=== PATIENT | female | born 1965 | race Caucasian/White ===

== ENCOUNTER 2018-01-08 18:21 | Inpatient (IN) | payer OTHER ==
[~2018-01-08] VITALS: Ht 165.1 cm; Wt 62.2 kg
[2018-01-08] MEDS ORDERED: SODIUM CHLORIDE 0.9% 1000ML 1,000 ML IV SCH (20:13)
[2018-01-08] MEDS ORDERED: POLYETHYLENE (MIRALAX) 17 GM PACK PO PRN (20:15)
[2018-01-08] MEDS ORDERED: ALUMINUM/MAGNESIUM/SIMETH (MAALOX MAX) 30 ML UDC PO PRN (20:15)
[2018-01-08] MEDS ORDERED: ONDANSETRON INJ 2 MG/ML 2 ML VIAL IV PRN (20:15)
[2018-01-08] MEDS ORDERED: ACETAMINOPHEN 325 MG TAB PO PRN (20:15)
[2018-01-08] MEDS ORDERED: MAGNESIUM HYDROXIDE SUSP 30 ML UDC PO PRN (20:15)
[2018-01-08] MEDS ORDERED: PHARMACIST DISCHARGE MED REC CONSULT PRN (20:15)
[2018-01-08] MEDS ORDERED: NITROGLYCERIN 0.4 MG SL PER TAB CHARGE SL PRN (20:15)
[2018-01-08 20:17] VITALS: O2SAT 100
[2018-01-08] MEDS ORDERED: NRN300 PO (20:23)
[2018-01-08] MEDS ORDERED: SUMA50TA15 PO (20:23)
[2018-01-08] MEDS ORDERED: OMEP20TA PO (20:23)
[2018-01-08] MEDS ORDERED: FLUT0.15 NAE (20:23)
[2018-01-08] MEDS ORDERED: DOCU-94 PO (20:23)
[2018-01-08] MEDS ORDERED: MGNO400 PO (20:23)
--- NOTE | 2018-01-08 20:24 | History and Physical ---
History & Physical Date & Time of Service: January 08, 2018 at 20:24 Chief Complaint: Stroke-Like Symptoms Primary Care Physician: Jenny Faye PA-C History of Present Illness Source: patient This is a 52-year-old female with medical history of migraine headache, vertigo Presented to [facility] ER with complaint of right-sided numbness, difficulty to speak, right eye blurred vision Patient mentioned she woke up this morning with slight frontal headache. Around 10:30 AM as she was working on her computer, noted having difficulty typing, could not identify the alphabets on Bhat board. Blurred vision on right eye Has been noted patient was having word finding difficulties, dysarthria No facial droop noted Had tingling numbness of fingers on both hands No weakness or paresthesia of any extremities No complaint of shortness of breath, chest heaviness, palpitation or dizzy spell Patient was brought to [facility] ER CT head without contrast: Showed no acute change Patient follows with Dr. Joe neurology at [facility] does not have any neurologic coverage Transferred to [facility] for further neurological evaluation Lab work at [facility] [address]: Today 01/08/2018 at 16: 14 p.m.-ESSENTIALLY NORMAL WBC 6.87/hemoglobin 13.7/hematocrit 39.4/platelet count 282 Troponin negative Sodium 140 Potassium 4.0 Chloride 99 BUN 18/creatinine 0.8 CO2- 29/ anion gap 12 Past Medical/Surgical History Medical Problems: (1) Stroke-like symptom Allergies Coded Allergies: No Known Allergies (Unverified , 01/08/18) Home Medications Scheduled Docusate Sodium (Colace), 1 CAP PO HS Fluticasone Propionate (Nasal) (Flonase Allergy Relief), 2 SPRAYS MACI DAILY Gabapentin (Gabapentin), 300 MG PO TID Magnesium Oxide (Magnesium-Oxide), 1 TAB PO DAILY Omeprazole (Omeprazole), 1 TAB PO DAILY Sumatriptan Succinate (Imitrex), 50 MG PO UD Review of Systems Constitutional: + weakness Eyes: + worsening of vision (On right eye) Respiratory: No cough, No sputum, No wheezing, No shortness of breath, No dyspnea on exertion, No dyspnea at rest, No hemoptysis, No problem reported Cardiovascular: No chest pain, No orthopnea, No PND, No edema, No claudication , No palpitations, No problem reported Abdomen: No pain, No nausea, No vomiting, No diarrhea, No constipation, No GI bleeding, No problem reported Neurologic: + memory loss, + numbness/tingling (Both hands), + problem reported (Dysarthria/word finding difficulties) Psychiatric: + anxiety Physical Exam General Appearance: no apparent distress Head: normocephalic, atraumatic Eyes: normal inspection, PERRL, EOMI, sclerae normal, + pertinent finding ( Vision normal in both eyes with confrontational testing) ENT: normal ENT inspection Neck: supple, no adenopathy, thyroid normal, no JVD Respiratory/Chest: chest non-tender, lungs clear, normal breath sounds, no respiratory distress Cardiovascular: regular rate, rhythm, no edema, no JVD Abdomen/GI: normal bowel sounds, non tender, soft Extremities/Musculoskelatal: no calf tenderness, normal capillary refill, no pedal edema 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 There is no midline shift Visualized portion of paranasal sinuses and mastoid air cells are relatively well pneumatized No evidence of any acute change Impression Assessment and Plan STROKE LIKE SYMPTOM : Transient episode of right eye blurriness dysarthria/word finding difficulties Without any focal neurological deficit Symptoms resolved after few hours Initial imaging CT head without contrast done in [place] ER negative for any acute change Patient's presentation is very atypical as per stroke/TIA Order for MRI brain Monitor in telemetry to rule out arrhythmia Carotid Doppler and resting echo ordered Neurology consult requested patient is known to Dr. Joe Aspirin 81 mg daily added Fasting blood sugar lipid profile added in a.m. lab to assess for risk factor HX OF MIGRANE Patient's presentation could be a complex migraine attack Continued with outpatient medication of triptan Neurology evaluation with Dr. Joe CODE STATUS: Full code DVT prophylaxis: Low risk SCD and teds Ambulate DISPOSITION: Expected to be discharged home Neurology follow-up with Dr. Joe Patient follows at [facility] VTE Prophylaxis Risk Level: Moderate
[2018-01-08] MEDS ORDERED: SUMATRIPTAN SUCCINATE 50 MG TAB PO PRN (20:30)
[2018-01-08] MEDS ORDERED: DOCUSATE SODIUM 100 MG CAP PO SCH (21:00)
[2018-01-08 21:13] LABS: INR 1.1 (0.9-1.1); PTT PATIENT 25.3 SECONDS (21.0-31.0)
[2018-01-08] MEDS: GABAPENTIN 300 MG CAP PO SCH (21:29)
[2018-01-08 22:21] VITALS: BP 127/81; PULSE 60; TEMP 36.6; O2SAT 100; Ht 165.1 cm; Wt 62.2 kg
[2018-01-09 00:06] VITALS: BP 121/79; PULSE 65; TEMP 36.4; O2SAT 96
[2018-01-09] MEDS ORDERED: GADAVIST IV PRN (00:15)
[2018-01-09 03:47] VITALS: BP 108/74; PULSE 69; TEMP 36.6; O2SAT 99
[2018-01-09] MEDS: HEPARIN SOD 5000 UNIT/0.5 ML CARP SQ SCH ×2 (05:28→14:29)
[2018-01-09 06:01] LABS: HEMOGLOBIN A1C 5.4 % (4.5-5.6)
--- NOTE | 2018-01-09 07:10 | DIAGNOSTIC IMAGING REPORT ---
CAROTID DOPPLER NECK ART CLINICAL HISTORY: 52 years-old Female presenting with Stroke. TECHNIQUE: Real-time grayscale and color and spectral Doppler ultrasound imaging of the bilateral carotid arteries was performed. NASCET criteria was used in evaluating this study. COMPARISON: None. FINDINGS: Right: Common carotid: Patent. Peak systolic velocity 71 cm/s. Internal carotid artery: Patent. Peak systolic velocity 127 cm/s. Systolic ratio: 1.8. External carotid artery: Patent. Peak systolic velocity 75 cm/s. Left: Common carotid: Patent. Peak systolic velocity 89 cm/s. Internal carotid artery: Patent. Peak systolic velocity 129 cm/s. Systolic ratio: 1.4. External carotid artery: Patent. Peak systolic velocity 68 cm/s. Bilateral antegrade flow within the vertebral arteries. Reference ranges: Stenosis measurements are compared to reference velocity parameters. Primary parameters: ICA peak systolic velocity (PSV) < 125 cm/s normal or indicating < 50% stenosis; ICA PSV 125-230 cm/s equivalent to 50-69% stenosis; ICA PSV > 230 cm/s equivalent to greater than or equal to 70% stenosis. Additional parameters: ICA PSV to common carotid artery PSV ratio < 2 normal or < 50% stenosis; 2-4 equates to 50-69% stenosis, > 4 equates to greater than or equal to 70% stenosis. Normal ICA end-diastolic velocity less than 40. Blood pressure: Not performed. IMPRESSION: 1. Elevated velocity in the bilateral internal carotid arteries suggests up to 50-69% stenosis. Electronically signed by: Giovanny Leonard M.D. 01/09/2018 7:09 AM Dictated Date/Time: 01/09/2018 7:06 AM
--- NOTE | 2018-01-09 07:18 | DIAGNOSTIC IMAGING REPORT ---
BRAIN COMBO CLINICAL HISTORY: 52 years-old Female presenting with Stroke, disorientation, confusion. TECHNIQUE: Multisequence, multiplanar MR imaging of the brain was performed before and after the administration of intravenous contrast. IV contrast: 6 mL of Gadavist. COMPARISON: None. FINDINGS: Ventricles and sulci normal in size. Brain parenchyma normal in appearance with preserved nolan-white differentiation. No mass effect or midline shift. No restricted diffusion to suggest acute ischemia. No hemorrhage. No extra-axial fluid collection. T2 skull base flow voids preserved. No abnormal parenchymal enhancement. Bone marrow signal intensity within the calvarium within normal limits. IMPRESSION: 1. No acute intracranial pathology. No abnormal enhancement. Electronically signed by: Giovanny Leonard M.D. 01/09/2018 7:17 AM Dictated Date/Time: 01/09/2018 6:56 AM
[2018-01-09 07:29] LABS: HEMATOCRIT 39.2 % (37-47); HEMOGLOBIN 13.3 g/dL (12.0-16.0); MEAN CELL VOLUME 86.5 fL (80-100); MEAN CORPUSCULAR HEMOGLOBIN 29.4 pg (25-34); MEAN CORPUSCULAR HGB CONC 33.9 g/dl (32-36); MEAN PLATELET VOLUME 10.1 fL (7.4-10.4); PLATELET COUNT 258 K/uL (130-400); RED CELL DISTRIBUTION WIDTH CV 13.3 % (11.5-14.5); RED CELL DISTRIBUTION WIDTH SD 42.2 fL (36.4-46.3); WHITE BLOOD COUNT 4.56 K/uL (4.8-10.8)
[2018-01-09 07:44] VITALS: BP 108/74; PULSE 68; TEMP 36.8; O2SAT 97
[2018-01-09 08:00] LABS: CALCIUM 8.8 mg/dl (8.5-10.1); CREATININE 0.65 mg/dl (0.60-1.20); POTASSIUM 3.8 mmol/L (3.5-5.1)
[2018-01-09] MEDS: GABAPENTIN 300 MG CAP PO SCH ×2 (08:02→14:27)
[2018-01-09] MEDS ORDERED: PANTOprazole SOD 40 MG TAB PO SCH (09:00)
[2018-01-09] MEDS ORDERED: ASPIRIN 81 MG ECTAB PO SCH (09:00)
[2018-01-09] MEDS ORDERED: FLUTICASONE PROPIONATE NA SPR 16 GM BTL NAE SCH (09:00)
[2018-01-09] MEDS ORDERED: MAGNESIUM OXIDE 400 MG TAB PO SCH (09:00)
--- NOTE | 2018-01-09 10:41 | ECHOCARDIOGRAM REPORT ---
*NOTICE TO RECEIVING DEMOCRAT AGENCY This information is strictly Confidential and protected under [place] law. [place] law prohibits you from making any further disclosure of this information unless further disclosure is expressly permitted by the written consent of the person to whom it pertains or is authorized by law. A general authorization for the release of medical or other information is not sufficient for this purpose. Hospital accepts no responsibility if the information is made available to any other person, INCLUDING THE PATIENT. Interpretation Summary * Name: DE PALACIOS Study Date: 01/09/2018 06:57 AM BP: 108/74 mmHg * Patient Location: .2T\S\E219\S\1 HR: 69 * : 1965 (M/d/yyyy) Gender: Female Height: 65 in * Age: 52 yrs Weight: 137 lb * Ordering Physician: Emperatriz Gasca * Referring Physician: No Doctor, Assigned * Performed By: Cassie Reyes RDCS * * Reason For Study: Cerebral ischemia/embolus * BSA: 1.7 m2 * -- Conclusions -- * Normal LV chamber size and wall thickness. * Normal LV systolic function, EF 60-65%. * No segmental left ventricular wall motion abnormalities are noted. * Normal diastolic function. * No significnat valvular pathology. * Injection of contrast documented no interatrial shunt. Procedure Details * A complete two-dimensional transthoracic echocardiogram was performed (2D, M-mode, Doppler and color flow Doppler). * A saline contrast injection was performed to assess for cardiac shunting. * The injection was performed through an intravenous line in the left arm. * The attending nurse who injected the saline contrast was Jude Cobos RN. * A total of 10 cc of agitated saline was given. Left Ventricle * The left ventricle is normal in size. * There is normal left ventricular wall thickness. * Ejection Fraction = 60-65%. * Left ventricular systolic function is normal. * No segmental left ventricular wall motion abnormalities are noted. * The left ventricular wall motion is normal. Right Ventricle * The right ventricular cavity size is normal (basal dimension <4.2 cm in right ventricular apical 4-chamber view). * The right ventricular systolic function is normal as assessed by tricuspid annular plane systolic excursion (TAPSE) (normal >1.5 cm). Atria * The left atrial size is normal. * Right atrial size is normal. * Injection of contrast documented no interatrial shunt. Mitral Valve * The mitral valve is normal in structure and function. Tricuspid Valve * The tricuspid valve is normal in structure and function. Aortic Valve * The aortic valve is normal in structure and function. Pulmonic Valve * The pulmonary valve is not well seen, but the Doppler examination is normal without significant regurgitation or stenosis. Great Vessels * The aortic root and proximal ascending aorta are normal sized. Pericardium/Pleural * There is no pericardial effusion. Left Ventricular Diastolic Function * Pulse wave TDI of the anterior and posterior mitral annulas demonstrates normal LV relaxation MMode 2D Measurements and Calculations IVSd 0.98 cm LVIDd 3.9 cm LVIDs 2.1 cm LVPWd 1.2 cm IVS/LVPW 0.85 FS 45.3 % EDV(Teich) 67.1 ml ESV(Teich) 15.3 ml EF(Teich) 77.2 % EDV(cubed) 60.7 ml ESV(cubed) 9.9 ml EF(cubed) 83.6 % LV mass(C)d 136.6 grams LV mass(C)dI 81.1 grams/m\S\2 SV(Teich) 51.8 ml SI(Teich) 30.8 ml/m\S\2 SV(cubed) 50.8 ml SI(cubed) 30.1 ml/m\S\2 Ao root diam 2.9 cm Ao root area 6.5 cm\S\2 ACS 2.0 cm LA dimension 3.4 cm asc Aorta Diam 2.8 cm LA/Ao 1.2 LVOT diam 2.0 cm LVOT area 3.2 cm\S\2 LVAd ap4 20.1 cm\S\2 LVLd ap4 6.3 cm EDV(MOD-sp4) 52.4 ml EDV(sp4-el) 54.4 ml LVAs ap4 9.6 cm\S\2 LVLs ap4 5.3 cm ESV(MOD-sp4) 15.1 ml ESV(sp4-el) 14.8 ml EF(MOD-sp4) 71.1 % EF(sp4-el) 72.7 % LVAd ap2 20.3 cm\S\2 LVLd ap2 6.9 cm EDV(MOD-sp2) 49.5 ml EDV(sp2-el) 50.4 ml LVAs ap2 10.5 cm\S\2 LVLs ap2 5.7 cm ESV(MOD-sp2) 16.9 ml ESV(sp2-el) 16.4 ml EF(MOD-sp2) 65.8 % EF(sp2-el) 67.5 % LVLd %diff 8.6 % EDV(MOD-bp) 53.3 ml LVLs %diff 7.5 % ESV(MOD-bp) 16.6 ml EF(MOD-bp) 68.8 % SV(MOD-sp4) 37.3 ml SI(MOD-sp4) 22.1 ml/m\S\2 SV(MOD-sp2) 32.6 ml SI(MOD-sp2) 19.3 ml/m\S\2 SV(MOD-bp) 36.6 ml SI(MOD-bp) 21.8 ml/m\S\2 SV(sp4-el) 39.5 ml SI(sp4-el) 23.5 ml/m\S\2 SV(sp2-el) 34.1 ml SI(sp2-el) 20.2 ml/m\S\2 Doppler Measurements and Calculations MV E max bailey 80.0 cm/sec MV A max bailey 66.5 cm/sec MV E/A 1.2 MV dec time 0.19 sec Ao V2 max 112.9 cm/sec Ao max PG 5.1 mmHg Ao max PG (full) 1.3 mmHg [place](V,A) 2.7 cm\S\2 [place](V,D) 2.7 cm\S\2 LV V1 max PG 3.8 mmHg LV V1 max 97.0 cm/sec PA V2 max 78.7 cm/sec PA max PG 2.5 mmHg PA acc slope 421.9 cm/sec\S\2 PA acc time 0.11 sec TR max bailey 166.8 cm/sec PA pr(Accel) 28.3 mmHg
[2018-01-09 11:37] VITALS: BP_SYST 108; BP_SYST 115; BP_DIAS 72; BP_DIAS 74; PULSE 69; TEMP 36.5; O2SAT 97
--- NOTE | 2018-01-09 14:20 | Neurology Consultation ---
Neurology Consultation Date of Consultation: January 09, 2018. Attending Physician: Raoul Nicole M.D. Primary Care Physician: Jenny Faye PA-C Reason for Consultation: stroke like symptoms History of Present Illness Source: patient Jasmina is a 52 year old female with medical history of migraine headache, vertigo presented to [facility] ER with complaint of right-sided numbness, difficulty to speak, right eye blurred vision. She woke up this morning with slight frontal headache and around 10:30 am she was working on her computer having difficulty with some tasks and was unable to identify the keys on the keyboard. she states her right eye was blurred from mid line and laterally, there was no facial droop or weakness. She did have numbness and tingling in her right finger that she has most mornings when she wakes but it lasted longer than normal. On her head CT there were no abnormal findings. She was then brought to [facility] for further evaluation and neurology review. denies CP , SOB, abdominal pain, one sided numbness tingling weakness, slurring of speech , swallowing issues, N, V. symptoms lasted about 4 hours. Allergies Coded Allergies: No Known Allergies (Unverified , 01/08/18) Current Inpatient Medications Current Inpatient Medications Medications (Trade) Dose Ordered Sig/Chiara Route Start Time Stop Time Status Last Admin Dose Admin Aspirin (Ecotrin Tab) 81 mg QAM PO 01/09/18 09:00 02/08/18 08:59 01/09/18 08:01 81 MG Miscellaneous Information (Pharmacist Discharge Med Rec Consult) 1 ea UD PRN N/A 01/08/18 20:15 02/07/18 20:14 Heparin Sodium (Porcine) (Heparin Sq 5000 Unit/0.5ml) 5,000 unit Q8 SQ 01/09/18 06:00 02/08/18 05:59 01/09/18 05:28 5,000 UNIT Acetaminophen (Tylenol Tab) 650 mg Q4H PRN PO 01/08/18 20:15 02/07/18 20:14 Al Hydrox/Mg Hydrox/Simethicone (Maalox Max Susp) 15 ml Q4H PRN PO 01/08/18 20:15 02/07/18 20:14 Magnesium Hydroxide (Milk Of Magnesia Susp) 30 ml Q12H PRN PO 01/08/18 20:15 02/07/18 20:14 Ondansetron HCl (Zofran Inj) 4 mg Q6H PRN IV 01/08/18 20:15 02/07/18 20:14 Nitroglycerin (Nitrostat Tab) 0.4 mg UD PRN SL 01/08/18 20:15 02/07/18 20:14 Polyethylene (Miralax Powder Packet) 17 gm DAILY PRN PO 01/08/18 20:15 02/07/18 20:14 Docusate Sodium (coLACE CAP) 100 mg HS PO 01/08/18 21:00 02/07/18 20:59 01/08/18 21:29 100 MG Fluticasone Propionate (Flonase Nasal Lambert) 2 sprays DAILY MACI 01/09/18 09:00 02/08/18 08:59 Gabapentin (Neurontin Cap) 300 mg TID PO 01/08/18 21:00 02/07/18 20:59 01/09/18 08:02 300 MG Magnesium Oxide (Mag-Ox Tab) 400 mg DAILY PO 01/09/18 09:00 02/08/18 08:59 01/09/18 08:01 400 MG Sumatriptan Succinate (Imitrex Tab) 50 mg UD PRN PO 01/08/18 20:30 02/07/18 20:29 Pantoprazole Sodium (Protonix Tab) 40 mg QAM PO 01/09/18 09:00 02/08/18 08:59 01/09/18 08:01 40 MG Gadobutrol (Gadavist) 6 mmol UD PRN IV 01/09/18 00:15 01/13/18 00:14 Physical Exam Vital Signs (Past 24 Hrs): Date Time Temp Pulse Resp B/P (MAP) Pulse Ox O2 Delivery O2 Flow Rate FiO2 01/09/18 12:00 Room Air 01/09/18 11:37 36.5 69 18 115/72 (86) 97 01/09/18 08:00 Room Air 01/09/18 07:44 36.8 68 18 108/74 (85) 97 01/09/18 04:00 Room Air 01/09/18 03:47 36.6 69 18 108/74 (85) 99 01/09/18 00:06 36.4 65 18 121/79 (93) 96 01/08/18 23:59 Room Air 01/08/18 22:21 36.6 60 18 127/81 100 Room Air 01/08/18 20:17 100 Room Air Physical Exam: Constitutional: appearance nourished, healthy and normal Ears, Nose, Mouth and Throat: mucous membranes moist, no injection and skin normal, eyes normal Cardiovascular: normal S-1 and S-2 and regular rate and rhythm Respiratory: clear to auscultation (CTA) and no rales, rhonchi or wheeze Musculoskeletal: no peripheral edema and good distal pulses Skin: no stigmata of neurocutaneous disease noted and normal and intact Eyes: extraocular muscles intact (EOMI) and pupils equal, round and reactive to light (PERRL), contacts in place NEUROLOGIC EXAMINATION: Mental status: Alert and interactive Oriented to full date and location Oriented to person Speech fluent with no evidence of aphasia Cranial Nerves smile eye brow raise symmetric, tongue midline Reflexes: Deep tendon reflexes were symmetrical and graded 2/5. Plantar responses were flexor. Sensory: light touch vibration Coordination: Romberg absent Gait/Stance: Posture normal. Gait normal: with steady with steps, base, turning, heel and toe walking and tandem gait. Motor: Negative for pronator drift of out stretched arms with eyes closed. 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, hip flex ext patellar/planter flex ext 5/5 Laboratory Results Past 24 Hours: 01/09/18 06:53 01/09/18 06:53 Test 01/08/18 20:25 01/08/18 20:43 01/09/18 06:53 Estimated Average Glucose 108 mg/dl Hemoglobin A1c 5.4 % (4.5-5.6) Prothrombin Time 12.0 SECONDS (9.0-12.0) Prothromb Time International Ratio 1.1 (0.9-1.1) Activated Partial Thromboplast Time 25.3 SECONDS (21.0-31.0) Partial Thromboplastin Ratio 1.0 Red Blood Count 4.53 M/uL (4.2-5.4) Mean Corpuscular Volume 86.5 fL (80-100) Mean Corpuscular Hemoglobin 29.4 pg (25-34) Mean Corpuscular Hemoglobin Concent 33.9 g/dl (32-36) RDW Standard Deviation 42.2 fL (36.4-46.3) RDW Coefficient of Variation 13.3 % (11.5-14.5) Mean Platelet Volume 10.1 fL (7.4-10.4) Anion Gap 5.0 mmol/L (3-11) Est Creatinine Clear Calc Drug Dose 90.1 ml/min Estimated GFR () 117.5 Estimated GFR (Non- 101.4 BUN/Creatinine Ratio 17.1 (10-20) Calcium Level 8.8 mg/dl (8.5-10.1) Triglycerides Level 84 mg/dl (0-150) Cholesterol Level 143 mg/dl (0-200) HDL Cholesterol 63 mg/dl LDL Cholesterol, Calculated 63 mg/dl VLDL Cholesterol, Calculated 17 mg/dl Cholesterol/HDL Ratio 2.3 Imaging carotid doppler- . Elevated velocity in the bilateral internal carotid arteries suggests up to 50-69% stenosis. MRI brain with and without contrast- No acute intracranial pathology. No abnormal enhancement TTE- Normal LV chamber size and wall thickness. * Normal LV systolic function, EF 60-65%. * No segmental left ventricular wall motion abnormalities are noted. * Normal diastolic function. * No significnat valvular pathology. * Injection of contrast documented no interatrial shunt. Impression 52 year old female s/p word finding issues, blurred vision right lateral field, confusion Plan 1. MRI brain- no acute findings 2. TTE- no ASD 3. aspirin started 81 mg was not on aspirin previously 4. carotid doppler 50-69% stenosis will need to be repeated in 6 months to 1 year 5. optimize HTN, DL no issues at this time 6. PT/OT speech no current issues 7. history of migraine possibly complex migraine with aura vs TIA 8. no triptan due to possible TIA- should excedrin migraine 9. continue mg+ 400 mg daily and add riboflavin 400 mg daily return in 2-[address] Joe or Carolynn Shaffer PAC schedule I have seen and discussed above patient with Dr Raoul Joe, neurology Patient seen and interviewed, imaging reviewed and case discussed with Carolynn Lilly suspect this was a migrainous aura waxing an waning in type and following a headache of low intensity rather thanpreceding it but at this age with family history we have to term it a tia or rind with no residual deficits on exam or imaging Agree with asa only and avoid triptans in future with use of otc meds ie excedrin migraine, mag oxide contines neurontin and follow up with us in three to four weeks duplex is actually at the very lowest end of the range for calling it a 50-69% and suspect there is just a bit of plaque not inconsistent with age OK to discharge today Raoul Joe MD
[2018-01-09 15:36] VITALS: BP 122/85; PULSE 57; TEMP 36.6; O2SAT 98
--- NOTE | 2018-01-09 15:38 | Progress Note ---
Medicine Progress Note Date & Time of Visit: January 09, 2018 at 15:37 . Subjective Doing well. No headache. No focal neurologic symptoms. No CP, palpitations, SOB. No nausea or vomiting. . Objective Last 8 Hrs Date Time Temp Pulse Resp B/P (MAP) Pulse Ox O2 Delivery O2 Flow Rate FiO2 01/09/18 15:36 36.6 57 20 122/85 (97) 98 Room Air 01/09/18 12:00 Room Air 01/09/18 11:37 36.5 69 18 115/72 (86) 97 01/09/18 08:00 Room Air 01/09/18 07:44 36.8 68 18 108/74 (85) 97 Physical Exam: General- no distress Lungs- clear to auscultation; no respiratory distress Cardiovascular- RRR; no murmur; no gallop; no JVD; no pretibial edema Abdomen- + bowel sounds, soft, nontender Extremities- no cyanosis; no calf tenderness Neuro- alert, oriented; PERRL, EOMI; no facial palsy; no dysarthria; tongue midline; motor strength upper and lower extremities intact; patellar DTR's 2/2; plantar reflexes downgoing; finger to nose intact; heel t valencia intact Skin- warm & dry . Laboratory Results: Last 24 Hours Test 01/08/18 20:25 01/08/18 20:43 01/09/18 06:53 Estimated Average Glucose 108 mg/dl Hemoglobin A1c 5.4 % Prothrombin Time 12.0 SECONDS Prothromb Time International Ratio 1.1 Activated Partial Thromboplast Time 25.3 SECONDS Partial Thromboplastin Ratio 1.0 White Blood Count 4.56 K/uL Red Blood Count 4.53 M/uL Hemoglobin 13.3 g/dL Hematocrit 39.2 % Mean Corpuscular Volume 86.5 fL Mean Corpuscular Hemoglobin 29.4 pg Mean Corpuscular Hemoglobin Concent 33.9 g/dl RDW Standard Deviation 42.2 fL RDW Coefficient of Variation 13.3 % Platelet Count 258 K/uL Mean Platelet Volume 10.1 fL Sodium Level 143 mmol/L Potassium Level 3.8 mmol/L Chloride Level 111 mmol/L Carbon Dioxide Level 27 mmol/L Anion Gap 5.0 mmol/L Blood Urea Nitrogen 11 mg/dl Creatinine 0.65 mg/dl Est Creatinine Clear Calc Drug Dose 90.1 ml/min Estimated GFR () 117.5 Estimated GFR (Non- 101.4 BUN/Creatinine Ratio 17.1 Random Glucose 81 mg/dl Calcium Level 8.8 mg/dl Triglycerides Level 84 mg/dl Cholesterol Level 143 mg/dl HDL Cholesterol 63 mg/dl LDL Cholesterol, Calculated 63 mg/dl VLDL Cholesterol, Calculated 17 mg/dl Cholesterol/HDL Ratio 2.3 Assessment & Plan NEURO SYMPTOMS Presented to ED at [facility] with blurred vision in right eye , difficulty speaking, right-sided paresthesiae. Transferred to [facility] for further evaluation. MRI brain negative. Carotid duplex demonstrated bilateral carotid artery disease with estimated stenoses of 50-69%. Echo was unremarkable. 12-lead EKG and cardiac monitoring demonstrated NSR. LDL-c = 63. Symptoms resolved. Neurology consulted. Neuro symptoms felt to be due to complex migraine vs possible TIA. Management of possible TIA with aspirin and atorvastatin. Sumatriptan discontinued. Gabapentin, magnesium, riboflavin, Excedrin Migraine PRN. CAROTID ARTERY DISEASE Carotid duplex demonstrated bilateral carotid artery disease with estimated stenoses of 50-69%. Manage with with aspirin and atorvastatin. Recheck carotid duplex in 6-12 months. VTE PROPHYLAXIS SQ heparin. DISPOSITION Discharge to home. Primary Care follow-up with Jenny Faye PA-C, [facility]. Neuro follow-up with Carolynn Shaffer PA-C. . Current Inpatient Medications: Current Inpatient Medications Medications (Trade) Dose Ordered Sig/Chiara Route Start Time Stop Time Status Last Admin Dose Admin Aspirin (Ecotrin Tab) 81 mg QAM PO 01/09/18 09:00 02/08/18 08:59 01/09/18 08:01 81 MG Miscellaneous Information (Pharmacist Discharge Med Rec Consult) 1 ea UD PRN N/A 01/08/18 20:15 02/07/18 20:14 Heparin Sodium (Porcine) (Heparin Sq 5000 Unit/0.5ml) 5,000 unit Q8 SQ 01/09/18 06:00 02/08/18 05:59 01/09/18 14:29 5,000 UNIT Acetaminophen (Tylenol Tab) 650 mg Q4H PRN PO 01/08/18 20:15 02/07/18 20:14 Al Hydrox/Mg Hydrox/Simethicone (Maalox Max Susp) 15 ml Q4H PRN PO 01/08/18 20:15 02/07/18 20:14 Magnesium Hydroxide (Milk Of Magnesia Susp) 30 ml Q12H PRN PO 01/08/18 20:15 02/07/18 20:14 Ondansetron HCl (Zofran Inj) 4 mg Q6H PRN IV 01/08/18 20:15 02/07/18 20:14 Nitroglycerin (Nitrostat Tab) 0.4 mg UD PRN SL 01/08/18 20:15 02/07/18 20:14 Polyethylene (Miralax Powder Packet) 17 gm DAILY PRN PO 01/08/18 20:15 02/07/18 20:14 Docusate Sodium (coLACE CAP) 100 mg HS PO 01/08/18 21:00 02/07/18 20:59 01/08/18 21:29 100 MG Fluticasone Propionate (Flonase Nasal [place]) 2 sprays DAILY MACI 01/09/18 09:00 02/08/18 08:59 Gabapentin (Neurontin Cap) 300 mg TID PO 01/08/18 21:00 02/07/18 20:59 01/09/18 14:27 300 MG Magnesium Oxide (Mag-Ox Tab) 400 mg DAILY PO 01/09/18 09:00 02/08/18 08:59 01/09/18 08:01 400 MG Sumatriptan Succinate (Imitrex Tab) 50 mg UD PRN PO 01/08/18 20:30 02/07/18 20:29 Pantoprazole Sodium (Protonix Tab) 40 mg QAM PO 01/09/18 09:00 02/08/18 08:59 01/09/18 08:01 40 MG Gadobutrol (Gadavist) 6 mmol UD PRN IV 01/09/18 00:15 01/13/18 00:14
[2018-01-09] MEDS ORDERED: LPT40 PO (15:47)
[2018-01-09] MEDS ORDERED: ASPI-390 PO (15:47)
[2018-01-09] MEDS ORDERED: ASPI-428 PO (15:47)
[2018-01-09] MEDS ORDERED: RIBO1TAB4 PO (15:47)
--- NOTE | 2018-01-09 15:55 | Discharge Instructions ---
Discharge Instructions Date of Service January 09, 2018. Admission Reason for Admission: visual changes, difficulty speaking . Discharge Discharge Diagnosis / Problem: complex migraine vs possible TIA (ministroke) Discharge Goals Goal(s): Improve disease control Activity Recommendations Activity Limitations: resume your previous activity . Instructions / Follow-Up Instructions / Follow-Up APPOINTMENTS: PRIMARY CARE 01/15/2018 3:10 PM Jenny Faye PA-C NEUROLOGY 01/30/2018 8:00 AM Carolynn Shaffer PA-C Neurology [facility] OTHER INSTRUCTIONS: There was no sign of a stroke on MRI scan. Echocardiogram (ultrasound of heart) looked good. Electrocardiogram showed regular heart rhythm. Ultrasound of carotid arteries showed moderate blockage. Neurologists felt that you probably had a complex migraine or TIA (ministroke)- hard to say for certain. Recommendations: take coated aspirin (Ecotrin) 81 mg daily take atorvastatin (Lipitor) 40 mg daily stop taking sumatriptan (Imitrex) OK to take Excedrin Migraine as instructed for migraine headaches start riboflavin (a B vitamin) 400 mg daily have PCP schedule follow-up ultrasound of carotid arteries in 6-12 months. Seek medical attention if you have: * temperature above 101 * chest pain or trouble breathing * abdominal pain, nausea, vomiting * diarrhea, dark stools or bloody stools * severe / unusual headache, trouble with vision, trouble speaking, trouble swallowing, weakness of arms or legs, trouble walking * any unanswered questions or concerns Call 911 if symptoms are severe. Call if you have any questions or problems. My cell # is [phone]. You can also reach a [facility] hospitalist on duty at [facility] 24 hours a day by calling [phone]. Please take good care of yourself. Raoul Nicole . Risk Factors for Stroke: You can reduce your chances of stroke by working with your medical provider to adopt a healthy lifestyle. Some specific ways to lower your chance of stroke are: * If you are a smoker, now is the time to stop smoking cigarettes * If you are diabetic, improve the control of your blood sugars * Avoid excessive amounts of alcohol * Control high blood pressure * Lose weight if you are overweight * Be sure to lead an active lifestyle * Eat a healthy diet low in salt, cholesterol and fat You should know about other risk factors for stroke that you are unable to control. These include: * Age 55 years or older * Male gender * Certain racial groups: , or / * Family History of Stroke, Mini stroke or Heart Attack * Sickle Cell Disease Follow Up: It is important for you to keep your follow up appointments with your medical provider. Current Hospital Diet Patient's current hospital diet: AHA Diet (Heart Healthy) Discharge Diet Recommended Diet: AHA Diet (Heart Healthy) Pending Studies Studies pending at discharge: no Laboratory Results Hemoglobin A1c Test 01/08/18 20:25 Range/Units Estimated Average Glucose 108 mg/dl Hemoglobin A1c 5.4 4.5-5.6 % Lipid Panel Test 01/09/18 06:53 Range/Units Triglycerides Level 84 0-150 mg/dl Cholesterol Level 143 0-200 mg/dl HDL Cholesterol 63 mg/dl Cholesterol/HDL Ratio 2.3 LDL Cholesterol, Calculated 63 mg/dl Medical Emergencies . Who to Call and When: Medical Emergencies: Call 911 immediately if you experience any of the following warning signs and symptoms of Stroke: * Sudden numbness or weakness of the face, arm or leg, especially on one side of the body * Sudden confusion, trouble speaking or understanding * Sudden trouble seeing in one or both eyes * Sudden trouble walking, dizziness, loss of balance or coordination * Sudden severe headache with no cause Do not delay calling 911 if you experience any warning signs or symptoms of a stroke. Delay in seeking medical attention may affect what treatments can be given to you. . Non-Emergent Contact Non-Emergency issues call your: Primary Care Provider, Hospital Doctor, Neurologist . . "Provider Documentation" section prepared by Raoul Nicole. . Stroke Core Measures Reason no t-PA for Stroke: Treatment not indicated Reason no antithrom by day 2: Treatment provided - N/A Reason no antithrom at D/C: Treatment provided - N/A Reason no statin at D/C: Treatment provided - N/A Reason no anticoag w/a fib: Treatment not indicated
--- NOTE | 2018-01-10 23:03 | Discharge Summary ---
Discharge Summary Date of Service January 10, 2018. Discharge Summary Admission Date: January 08, 2018 at 19:39 Discharge Date: January 09, 2018 Discharge Disposition: Home Principal Diagnosis: stroke-like symptoms (complex migraine vs TIA) OTHER NEW / ACUTE DIAGNOSES: bilateral carotid artery stenosis (50-69%) . Secondary Diagnoses/Problems: Migraine headaches . Procedures: Cardiac monitoring MRI brain Carotid duplex Echocardiogram . Consultations: Neurology with Carolynn Shaffer PA-C and Dr. Joe. . Medication Reconciliation New Medications: Aspirin (Ecotrin Low Strength) 81 Mg Tab 81 MG PO DAILY, #30 TAB 12 Refills no prescription necessary Onqnmdf-Gnyfhzmpxhclx-Riohtpuw (Excedrin Migraine) 1 Tab Tab 2 TAB PO DAILY PRN for Migraine, #24 TAB No prescription necessary. Do not take more than 2 pills in 24 hours. Atorvastatin (Lipitor) 40 Mg Tab 40 MG PO DAILY, #30 TAB 12 Refills Riboflavin (Riboflavin) 400 Mg Tab 400 MG PO DAILY, #30 TAB 12 Refills no prescription necessary Continued Medications: Docusate Sodium (Colace) 100 Mg Cap 1 CAP PO HS, CAP Fluticasone Propionate (Nasal) (Flonase Allergy Relief) 50 Mcg/Act Spr 2 SPRAYS MACI DAILY Gabapentin (Gabapentin) 300 Mg Cap 300 MG PO TID Magnesium Oxide (Magnesium-Oxide) 400 Mg Tab 1 TAB PO DAILY Omeprazole (Omeprazole) 20 Mg Tab 1 TAB PO DAILY, 1 Refill Discontinued Medications: Sumatriptan Succinate (Imitrex) 50 Mg Tab 50 MG PO UD, TAB take 1 tablet at onset of headache repeat in 2 hrs if needed Max 2 dose in a day max 3 dose in a week Admission Information HPI (per Admitting provider): This is a 52-year-old female with medical history of migraine headache, vertigo Presented to [facility] ER with complaint of right-sided numbness, difficulty to speak, right eye blurred vision Patient mentioned she woke up this morning with slight frontal headache. Around 10:30 AM as she was working on her computer, noted having difficulty typing, could not identify the alphabets on Bhat board. Blurred vision on right eye Has been noted patient was having word finding difficulties, dysarthria No facial droop noted Had tingling numbness of fingers on both hands No weakness or paresthesia of any extremities No complaint of shortness of breath, chest heaviness, palpitation or dizzy spell Patient was brought to [facility] ER CT head without contrast: Showed no acute change Patient follows with Dr. Joe neurology at [facility] does not have any neurologic coverage Transferred to [facility] for further neurological evaluation Lab work at [facility]: Today 01/08/2018 at 16: 14 p.m.-ESSENTIALLY NORMAL WBC 6.87/hemoglobin 13.7/hematocrit 39.4/platelet count 282 Troponin negative Sodium 140 Potassium 4.0 Chloride 99 BUN 18/creatinine 0.8 CO2- 29/ anion gap 12 . Physical Exam (per Admitting): General Appearance: no apparent distress Head: normocephalic, atraumatic Eyes: normal inspection, PERRL, EOMI, sclerae normal, + pertinent finding ( Vision normal in both eyes with confrontational testing) ENT: normal ENT inspection Neck: supple, no adenopathy, thyroid normal, no JVD Respiratory/Chest: chest non-tender, lungs clear, normal breath sounds, no respiratory distress Cardiovascular: regular rate, rhythm, no edema, no JVD Abdomen/GI: normal bowel sounds, non tender, soft Extremities/Musculoskelatal: no calf tenderness, normal capillary refill, no pedal edema Neurologic/Psych: baggage porter II-XII nml as tested, no motor/sensory deficits, alert , normal mood/affect, oriented x 3 Skin: normal color, warm/dry, no rash Hospital Course NEURO SYMPTOMS Presented to ED at [facility] with blurred vision in right eye , difficulty speaking, right-sided paresthesiae. Transferred to [facility] for further evaluation. MRI brain negative. Carotid duplex demonstrated bilateral carotid artery disease with estimated stenoses of 50-69%. Echo was unremarkable. 12-lead EKG and cardiac monitoring demonstrated NSR. LDL-c = 63. Fasting blood sugar 81, hemoglobin A1c 5.4. Symptoms resolved. Neurology consulted. Neuro symptoms felt to be due to complex migraine vs possible TIA. Management of possible TIA with aspirin and atorvastatin. Sumatriptan discontinued. Gabapentin, magnesium, riboflavin, Excedrin Migraine PRN. CAROTID ARTERY DISEASE Carotid duplex demonstrated bilateral carotid artery disease with estimated stenoses of 50-69%. Manage with with aspirin and atorvastatin. Recheck carotid duplex in 6-12 months. VTE PROPHYLAXIS SQ heparin. DISPOSITION Discharge to home. Primary Care follow-up with Jenny Faye PA-C, [facility]. Neuro follow-up with Carolynn Shaffer PA-C. . Total time spent on discharge = 35 min. This includes examination of the patient, discharge planning, medication reconciliation, and communication with other providers. . Discharge Instructions Date of Service January 09, 2018. Admission Reason for Admission: visual changes, difficulty speaking . Discharge Discharge Diagnosis / Problem: complex migraine vs possible TIA (ministroke) Discharge Goals Goal(s): Improve disease control Activity Recommendations Activity Limitations: resume your previous activity . Instructions / Follow-Up Instructions / Follow-Up APPOINTMENTS: PRIMARY CARE 01/15/2018 3:10 PM Jenny Faye PA-C NEUROLOGY 01/30/2018 8:00 AM Carolynn Shaffer PA-C Neurology [facility] OTHER INSTRUCTIONS: There was no sign of a stroke on MRI scan. Echocardiogram (ultrasound of heart) looked good. Electrocardiogram showed regular heart rhythm. Ultrasound of carotid arteries showed moderate blockage. Neurologists felt that you probably had a complex migraine or TIA (ministroke)- hard to say for certain. Recommendations: take coated aspirin (Ecotrin) 81 mg daily take atorvastatin (Lipitor) 40 mg daily stop taking sumatriptan (Imitrex) OK to take Excedrin Migraine as instructed for migraine headaches start riboflavin (a B vitamin) 400 mg daily have PCP schedule follow-up ultrasound of carotid arteries in 6-12 months. Seek medical attention if you have: * temperature above 101 * chest pain or trouble breathing * abdominal pain, nausea, vomiting * diarrhea, dark stools or bloody stools * severe / unusual headache, trouble with vision, trouble speaking, trouble swallowing, weakness of arms or legs, trouble walking * any unanswered questions or concerns Call 911 if symptoms are severe. Call if you have any questions or problems. My cell # is [phone]. You can also reach a [facility] hospitalist on duty at [facility] 24 hours a day by calling [phone]. Please take good care of yourself. Raoul Nicole . Risk Factors for Stroke: You can reduce your chances of stroke by working with your medical provider to adopt a healthy lifestyle. Some specific ways to lower your chance of stroke are: * If you are a smoker, now is the time to stop smoking cigarettes * If you are diabetic, improve the control of your blood sugars * Avoid excessive amounts of alcohol * Control high blood pressure * Lose weight if you are overweight * Be sure to lead an active lifestyle * Eat a healthy diet low in salt, cholesterol and fat You should know about other risk factors for stroke that you are unable to control. These include: * Age 55 years or older * Male gender * Certain racial groups: , or / * Family History of Stroke, Mini stroke or Heart Attack * Sickle Cell Disease Follow Up: It is important for you to keep your follow up appointments with your medical provider. Current Hospital Diet Patient's current hospital diet: AHA Diet (Heart Healthy) Discharge Diet Recommended Diet: AHA Diet (Heart Healthy) Pending Studies Studies pending at discharge: no Laboratory Results Hemoglobin A1c Test 01/08/18 20:25 Range/Units Estimated Average Glucose 108 mg/dl Hemoglobin A1c 5.4 4.5-5.6 % Lipid Panel Test 01/09/18 06:53 Range/Units Triglycerides Level 84 0-150 mg/dl Cholesterol Level 143 0-200 mg/dl HDL Cholesterol 63 mg/dl Cholesterol/HDL Ratio 2.3 LDL Cholesterol, Calculated 63 mg/dl Medical Emergencies . Who to Call and When: Medical Emergencies: Call 911 immediately if you experience any of the following warning signs and symptoms of Stroke: * Sudden numbness or weakness of the face, arm or leg, especially on one side of the body * Sudden confusion, trouble speaking or understanding * Sudden trouble seeing in one or both eyes * Sudden trouble walking, dizziness, loss of balance or coordination * Sudden severe headache with no cause Do not delay calling 911 if you experience any warning signs or symptoms of a stroke. Delay in seeking medical attention may affect what treatments can be given to you. . Non-Emergent Contact Non-Emergency issues call your: Primary Care Provider, Hospital Doctor, Neurologist . . "Provider Documentation" section prepared by Raoul Nicole. . Stroke Core Measures Reason no t-PA for Stroke: Treatment not indicated Reason no antithrom by day 2: Treatment provided - N/A Reason no antithrom at D/C: Treatment provided - N/A Reason no statin at D/C: Treatment provided - N/A Reason no anticoag w/a fib: Treatment not indicated . Additional Copies To Jenny Faye PA-C
== END 2018-01-09 16:17 | disposition home or self-care (01) | DRG 92 ==
LOC: C.2T 19:39 → OBSVTOIN 19:39
PROVIDERS: ADMIT Hospitalist; ATTEND Hospitalist
DX: R47.1 Dysarthria and anarthria (principal); G45.9 Transient cerebral ischemic attack, unspecified; G43.909 Migraine, unspecified, not intractable, without status migrainosus; I25.10 Atherosclerotic heart disease of native coronary artery without angina pectoris; H53.8 Other visual disturbances; Z79.899 Other long term (current) drug therapy